=== PATIENT | female | born 1970 ===

== ENCOUNTER 2017-11-03 10:28 | Emergency (ER) | payer BC ==
[2017-11-03 10:32] VITALS: BMI 41.8
[2017-11-03] MEDS ORDERED: Iohexol 240 (50 ml) PO STA (10:50)
[2017-11-03] MEDS ORDERED: Sodium Chloride 0.9% 1,000 ML IV ONE (10:50)
--- NOTE | 2017-11-03 10:52 | C.PDOC ---
History Of Present Illness 46 year old female presents to the ED c/o sharp RLQ pain that woke her up yesterday at 08:00 am. Patient reports taking Tylenol for her pain with no improvement. Patient denies hx of ovarian cysts, similar pain in the past, fever , nausea, vomit, diarrhea, dysuria, hematuria, vaginal discharge. Time Seen by Provider: 11/03/17 10:42 Chief Complaint (Nursing): Abdominal Pain History Per: Patient History/Exam Limitations: no limitations Onset/Duration Of Symptoms: Days Location Of Pain/Discomfort: RLQ Radiation Of Pain To:: None Quality Of Discomfort: "Pain" Associated Symptoms: denies: Fever, Chills, Vomiting, Back Pain Exacerbating Factors: None Alleviating Factors: None Recent travel outside of the [place]: No Additional History Per: Patient Abnormal Vaginal Bleeding: No Past Medical History Reviewed: Historical Data, Nursing Documentation, Vital Signs Vital Signs: Last Vital Signs Temp 98.7 F 11/03/17 14:46 Pulse 82 11/03/17 14:46 Resp 20 11/03/17 14:46 BP 131/73 11/03/17 14:46 Pulse Ox 98 11/03/17 15:57 - Medical History PMH: HTN Denies: Chronic Kidney Disease Surgical History: (x3) Family History: States: Unknown Family Hx - Social History Hx Alcohol Use: Yes Hx Substance Use: No - Immunization History Hx Tetanus Toxoid Vaccination: No Hx Influenza Vaccination: Yes Hx Pneumococcal Vaccination: No Review Of Systems Constitutional: Negative for: Fever, Chills Cardiovascular: Negative for: Chest Pain, Palpitations Respiratory: Negative for: Cough, Shortness of Breath Gastrointestinal: Positive for: Abdominal Pain. Negative for: Nausea, Vomiting Genitourinary: Negative for: Dysuria Skin: Negative for: Rash Neurological: Negative for: Weakness, Numbness Physical Exam - Physical Exam Appears: Non-toxic, No Acute Distress Skin: Normal Color, Warm, Dry Head: Atraumatic, Normacephalic Eye(s): bilateral: Normal Inspection Nose: No Discharge, No Deformity Oral Mucosa: Moist Neck: Normal ROM, Supple Chest: Symmetrical Cardiovascular: Rhythm Regular, No Murmur Respiratory: Normal Breath Sounds, No Rales, No Rhonchi, No Wheezing Gastrointestinal/Abdominal: Soft, Tenderness (RLQ), Rebound (RLQ), Other (+ psoas test, + obturator test) Extremity: Normal ROM, No Deformity, No Swelling Neurological/Psych: Oriented x3, Normal Speech, Normal Cognition Gait: Steady ED Course And Treatment - Laboratory Results Result Diagrams: 11/03/17 11:26 11/03/17 11:26 O2 Sat by Pulse Oximetry: 98 (ON RA) Pulse Ox Interpretation: Normal - CT Scan/US CT abd/pelvis Other Rad Studies (CT/US): Read By Radiologist, Radiology Report Reviewed CT/US Interpretation: PROCEDURE: CT scan abdomen pelvis dated 11/03/2017. HISTORY: Right lower quadrant pain. COMPARISON: None. TECHNIQUE: Contrast dose: 100 cc Visipaque 320 contrast material. Radiation dose: Total exam DLP = 980.99 mGy-cm. This CT exam was performed using one or more of the following dose reduction techniques: Automated exposure control, adjustment of the mA and/ or kV according to patient size, and/or use of iterative reconstruction technique. FINDINGS: LOWER THORAX: Nine lung bases clear. No infiltrate effusion or basilar pneumothorax. LIVER: The liver is enlarged measuring nearly 20 cm in CC dimension. There appears to be some very minor fatty hepatic infiltration. Curvilinear cluster of calcifications seen in the posterior superior aspect right lobe liver of uncertain etiology. Rule out sequela of all trauma or inflammation. Portal and splenic veins are opacified. GALLBLADDER AND BILE DUCTS: There appears to be gallbladder wall calcification (porcelain gallbladder) versus is a very large a peripherally calcified gallbladder calcification with additional smaller intraluminal gallbladder calculi near the gallbladder neck. Note that porcelain gallbladder caries and approximately 22- 30% risk of gallbladder carcinoma transformation. PANCREAS: The pancreas appears minimally atrophic. No obvious pancreatic mass collection or calcification. SPLEEN: Spleen exhibits normal size and attenuation pattern without mass collection or calcification. . ADRENALS: No adrenal masses. KIDNEYS AND URETERS: Kidneys demonstrate symmetric nephrograms. No evidence of nephrolithiasis or hydronephrosis. VASCULATURE: Unremarkable. No aortic aneurysm. BOWEL: Evaluation of the bowel is limited due to incomplete opacification. The intra the stomach is incompletely distended which presumably accounts for thick-walled appearance. Gastritis or other intrinsic/ invasive wall lesion not completely excluded. Visualized loops of small bowel exhibit normal contour and caliber. No evidence of acute mechanical small bowel obstruction with oral contrast material seen extending into the large bowel to the level of the mid to distal descending colon. There are few scattered colonic diverticula seen along the distal descending/ sigmoid colon junction however no radiographic evidence of acute diverticulitis. APPENDIX: Normal appendix best seen on coronal image number [id number]. Note made of some very minimal infiltration changes in the mesenteric fat right lower quadrant of the abdomen nonspecific. Rule out mild nonspecific mesenteric inflammatory process or fat ischemia. The adjacent bowel appears unremarkable so far as can be seen. PERITONEUM: No gross free intraperitoneal air. There are no free or loculated fluid collections. Small fat containing umbilical hernia. LYMPH NODES : No significant lymphadenopathy. BLADDER: Urinary bladder is incompletely distended and therefore difficult to evaluate. REPRODUCTIVE: There is a large rounded low-attenuation mass lesion in the uterine fundus region that measures approximately 6.3t x 6.4ap x 5.4cc cm. This focus is of uncertain etiology though could represent a large fibroid. The possibility of endometrial mass including endometrial carcinoma not excluded. . There is another smaller approximately 6 mm elliptical shaped low-attenuation focus seen within the anterior right parasagittal uterine body that could represent a fibroid as well. Clinical correlation recommended. There is a small left-sided adnexal cyst measuring approximately 2.1 x 1.8 cm. Pelvic ultrasound followup on the recommended. The. BONES: Mild multilevel degenerative spondylosis of the lower thoracic and lumbar spine. OTHER FINDINGS: None. IMPRESSION: Hepatomegaly. Porcelain gallbladder or versus large intraluminal gallbladder calculus. There also are a few smaller intraluminal gallbladder calculi in the region the gallbladder neck. Note that porcelain gallbladder CT carries a 22- 30 percent risk of transformation into gallbladder carcinoma. . Note made of some very minimal infiltration changes in the mesenteric fat right lower quadrant of the abdomen nonspecific. Rule out mild nonspecific mesenteric inflammatory process or fat ischemia. The adjacent bowel appears unremarkable so far as can be seen. Questionable large uterine fibroid versus endometrial mass (including endometrial carcinoma). . INSURANCE INVESTIGATOR consultation and follow-up studies studies recommended. Note that these findings discussed with ER PA. Al at approximately 2:45 p.m. with written down and read back verification. Medical Decision Making Medical Decision Making: Impression: RLQ pain Plan: * CT scan abd/pelvis * Labs * Omnipaque 50 ml PO * IV fluids * Toradol 30 mg IVP * UA On re-evaluation pt states abdominal pain resolved. Discussed CT report with pt and her family, f/u with pmd, beef skinner and surgeon leigh. Disposition Counseled Patient/Family Regarding: Studies Performed, Diagnosis, Need For Followup, Rx Given - Disposition Referrals: Mikaela Swift MD [Medical Doctor] - Tru Ely MD [Staff Provider] - Mickie Abdalla MD [Staff Provider] - Disposition: HOME/ ROUTINE Disposition Time: 15:52 Condition: STABLE Additional Instructions: FOLLOW UP WITH GENERAL SURGEON AND WATER PUMP ASSEMBLER FOR FURTHER EVALUATION OF POSSIBLE MALIGNANCIES. IF ANY CONCERNING SYMPTOMS DEVELOP RETURN TO ED. Instructions: Acute Abdominal Pain (ED) Forms: [email or web address] (Georgian) - Clinical Impression Clinical Impression: Hepatomegaly, Porcelain gallbladder, Endometrial mass - PA / CLAY ARTIST / Resident Statement MD/DO has reviewed & agrees with the documentation as recorded. - Scribe Statement The provider has reviewed the documentation as recorded by the Scribe Rubio Lopez All medical record entries made by the Scribe were at my direction and personally dictated by me. I have reviewed the chart and agree that the record accurately reflects my personal performance of the history, physical exam, medical decision making, and the department course for this patient. I have also personally directed, reviewed, and agree with the discharge instructions and disposition.
[2017-11-03] MEDS ORDERED: Iohexol 240 (50 ml) ONE (10:57)
[2017-11-03] MEDS ORDERED: Sodium Chloride 0.9% 1,000 ML ONE (10:58)
[2017-11-03 11:31] LABS: BASO % 0.4 % (0.0-2.0); EOS # 0.3 K/uL (0.0-0.7); EOS % 2.6 % (0.0-4.0); HEMOGLOBIN 13.3 g/dL (11.0-16.0); LYMPH # 2.3 K/uL (1.0-4.3); LYMPH % 19.3 % (20.0-40.0); MEAN CORPUSCULAR HEMOGLOBIN 29.5 pg (27.0-31.0); MEAN PLATELET VOLUME 8.6 fL (7.2-11.7); MONO # 0.8 K/uL (0.0-0.8); NEUT # 8.5 K/uL (1.8-7.0); NEUT % 70.7 % (50.0-75.0); RBC 4.51 Mil/uL (3.80-5.20); RED CELL DISTRIBUTION WIDTH 15.1 % (11.5-14.5)
[2017-11-03 11:36] LABS: HCG,QUALITATIVE URINE NEGATIVE (NEGATIVE)
[2017-11-03 11:43] LABS: CALCIUM 8.7 mg/dl (8.6-10.4); GFR AFRICAN-AMERICAN > 60; GFR NON-AFRICAN AMERICAN > 60; LIPASE 63 U/L (23-300)
[2017-11-03 11:46] LABS: ALBUMIN 4.1 g/dL (3.5-5.0); ALT/SGPT 22 U/L (9-52); AST/SGOT 30 U/L (14-36); BLOOD UREA NITROGEN 8 mg/dL (7-17)
[2017-11-03 11:54] LABS: SQUAMOUS EPITHIAL 3 /hpf (0-5); URINE BILIRUBIN NEGATIVE (NEGATIVE); URINE BLOOD 2+ (NEGATIVE); URINE CLARITY Hazy (Clear); URINE COLOR Yellow (YELLOW); URINE GLUCOSE (UA) NORMAL (Normal); URINE LEUKOCYTE ESTERASE NEG Leu/uL (Negative); URINE NITRATE NEGATIVE (NEGATIVE); URINE PROTEIN NEGATIVE (NEGATIVE); URINE UROBILINOGEN NORMAL mg/dL (0.2-1.0)
[2017-11-03] MEDS ORDERED: Iohexol 300 100 ML IJ ONE (12:11)
[2017-11-03 14:46] VITALS: BP 131/73; PULSE 82; RESP 20; TEMP 98.7
--- NOTE | 2017-11-03 14:55 | CT ---
PROCEDURE: CT scan abdomen pelvis dated 11/03/2017 HISTORY: Right lower quadrant pain. COMPARISON: None. TECHNIQUE: Contrast dose: 100 cc Visipaque 320 contrast material. Radiation dose: Total exam DLP = 980.99 mGy-cm. This CT exam was performed using one or more of the following dose reduction techniques: Automated exposure control, adjustment of the mA and/or kV according to patient size, and/or use of iterative reconstruction technique. FINDINGS: LOWER THORAX: Nine lung bases clear. No infiltrate effusion or basilar pneumothorax. LIVER: The liver is enlarged measuring nearly 20 cm in CC dimension. There appears to be some very minor fatty hepatic infiltration. Curvilinear cluster of calcifications seen in the posterior superior aspect right lobe liver of uncertain etiology. Rule out sequela of all trauma or inflammation. Portal and splenic veins are opacified. GALLBLADDER AND BILE DUCTS: There appears to be gallbladder wall calcification (porcelain gallbladder) versus is a very large a peripherally calcified gallbladder calcification with additional smaller intraluminal gallbladder calculi near the gallbladder neck. Note that porcelain gallbladder caries and approximately 22- 30% risk of gallbladder carcinoma transformation. PANCREAS: The pancreas appears minimally atrophic. No obvious pancreatic mass collection or calcification. SPLEEN: Spleen exhibits normal size and attenuation pattern without mass collection or calcification. . ADRENALS: No adrenal masses KIDNEYS AND URETERS: Kidneys demonstrate symmetric nephrograms. No evidence of nephrolithiasis or hydronephrosis. VASCULATURE: Unremarkable. No aortic aneurysm. BOWEL: Evaluation of the bowel is limited due to incomplete opacification. The intra the stomach is incompletely distended which presumably accounts for thick-walled appearance. Gastritis or other intrinsic/invasive wall lesion not completely excluded. Visualized loops of small bowel exhibit normal contour and caliber. No evidence of acute mechanical small bowel obstruction with oral contrast material seen extending into the large bowel to the level of the mid to distal descending colon. There are few scattered colonic diverticula seen along the distal descending/ sigmoid colon junction however no radiographic evidence of acute diverticulitis. APPENDIX: Normal appendix best seen on coronal image number [id number]. Note made of some very minimal infiltration changes in the mesenteric fat right lower quadrant of the abdomen nonspecific. Rule out mild nonspecific mesenteric inflammatory process or fat ischemia. The adjacent bowel appears unremarkable so far as can be seen. PERITONEUM: No gross free intraperitoneal air. There are no free or loculated fluid collections. Small fat containing umbilical hernia. LYMPH NODES: No significant lymphadenopathy. BLADDER: Urinary bladder is incompletely distended and therefore difficult to evaluate. REPRODUCTIVE: There is a large rounded low-attenuation mass lesion in the uterine fundus region that measures approximately 6.3t x 6.4ap x 5.4cc cm. This focus is of uncertain etiology though could represent a large fibroid. The possibility of endometrial mass including endometrial carcinoma not excluded. . There is another smaller approximately 6 mm elliptical shaped low-attenuation focus seen within the anterior right parasagittal uterine body that could represent a fibroid as well. Clinical correlation recommended. There is a small left-sided adnexal cyst measuring approximately 2.1 x 1.8 cm. Pelvic ultrasound followup on the recommended. The BONES: Mild multilevel degenerative spondylosis of the lower thoracic and lumbar spine. OTHER FINDINGS: None. IMPRESSION: Hepatomegaly. Porcelain gallbladder or versus large intraluminal gallbladder calculus. There also are a few smaller intraluminal gallbladder calculi in the region the gallbladder neck. Note that porcelain gallbladder CT carries a 22- 30 percent risk of transformation into gallbladder carcinoma. . Note made of some very minimal infiltration changes in the mesenteric fat right lower quadrant of the abdomen nonspecific. Rule out mild nonspecific mesenteric inflammatory process or fat ischemia. The adjacent bowel appears unremarkable so far as can be seen. Questionable large uterine fibroid versus endometrial mass (including endometrial carcinoma). . ESTATE PLANNING COUNSELOR consultation and follow-up studies studies recommended. Note that these findings discussed with MONICA Al at approximately 2:45 p.m. with written down and read back verification.
[2017-11-03 15:05] VITALS: O2SAT 98
== END 2017-11-03 16:04 | disposition home or self-care (01) ==
LOC: C.ER 10:28
DX: R16.0 Hepatomegaly, not elsewhere classified (principal); K82.8 Other specified diseases of gallbladder; N85.8 Other specified noninflammatory disorders of uterus
CPT/HCPCS: 74177; 80053; 81001; 83690; 84703; 85025; 96361; 96374; 99284; J1885; J7040; Q9966; Q9967